=== PATIENT | female | born 1950 | race Caucasian/White ===

== ENCOUNTER 2020-06-18 08:22 | Day surgery (SDC) | payer MEDICARE, SELFPAY ==
--- NOTE | 2020-06-15 14:57 | HO.ANESPROP2 ---
HPI - Anesthesia Eval Consult details Narrative: 70 yo female patient here for colonoscopy PMFSH Past Medical History Medical History Cough Fibromyalgia Hyperlipidemia Hypertension Smoker Family History Family history of problems with anesthesia: Yes (Daughter aspirated during colonoscopy-admitted to hospital with pneumonia for 5 days so patient worried about her colonoscopy today.) Surgical History Surgical History (Updated 06/18/20 @ 10:13 by Jessica Tamez) H/O colonoscopy S/P LUCY (total abdominal hysterectomy) History of Problems with Anesthesia: No Social History Social History Smoking Status: Current every day smoker Packs Per Day: 0.5 Cigarettes Per Day: 10.0 Years Smoked: 17 Smoked in Last 30 Days: Yes Patient Interested in Nicotine Replacement: No Use of substances other than those prescribed or required for medical reasons: No Advance Directives: No Advance Directives Information Provided: Yes Meds Allergies Allergy/AdvReac Type Severity Reaction Status Date / Time acetaminophen [From PERCOCET] Allergy Unknown CLOSTROPHOBIC Verified 06/18/20 09:44 REACTION oxycodone [From PERCOCET] Allergy Unknown CLOSTROPHOBIC Verified 06/18/20 09:44 REACTION Exam Height,Weight and Vital Signs: Vital Signs Temp Pulse Resp BP Pulse Ox 06/18/20 09:31 98.2 F 90 20 119/66 94 Airway Mallampati Class: III TM Dist: >3cm Neck ROM: Full Heart: RRR Lungs: Diminished but clear Assessment and Plan Assessment Anesthesia Assessment: Anesthesia Plan Discussed and Chart Reviewed Final Anesthetic Review NPO: Yes ASA Class: II Final Preanesthetic Review: No Changes in Pt Med Stat, Meds/Allgs Chart Reviewed, Consent Obtained/Reviewed and Anes Risks/Benef Reviewed Patient Risk: Intermediate Procedure Risk: Low Assessment/Block/Sedation in SS: Assess/Block/Sedation-SS Anesthetic Plan Anesthetic Plan: MAC: Disposition: Standard PACU
[2020-06-18 09:29] VITALS: BMI 28.7
[2020-06-18 09:31] VITALS: BP 119/66; PULSE 90; RESP 20; TEMP 36.8; O2SAT 94
[2020-06-18 09:33] VITALS: BMI 28.5
[2020-06-18 09:47] VITALS: BMI 28.7
--- NOTE | 2020-06-18 10:50 | PM.OP ---
Brief Operative Note Date of Service: 06/18/20 Pre-op diagnosis: Screening Post-op diagnosis: other (Colon polyps, Diverticulosis) Procedure: Colonoscopy to the cecum and TI with biopsies and removal of polyps Surgeon: Kemar Hernández Anesthesia: MAC Estimated blood loss (mL): 4.0 Pathology: other (A. Cecal polyp B. Polyps at 50cm C. Rectal polyps) Condition: stable Disposition: PACU
[2020-06-18 10:51] VITALS: BP 128/80; PULSE 122; RESP 18; TEMP 36.2; O2SAT 98
[2020-06-18 11:07] VITALS: BP 123/63; PULSE 99; RESP 18; TEMP 36.2; O2SAT 95
--- NOTE | 2020-06-18 11:24 | OP_ITS ---
SURGEON: Kemar Hernández MD INDICATIONS: The patient presents for evaluation of colorectal cancer screening and prior history of tubular adenoma of the colon. Full consent has been obtained from her for this, including risks of bleeding and perforation. PREOPERATIVE DIAGNOSIS: POSTOPERATIVE DIAGNOSIS: PROCEDURE PERFORMED: Colonoscopy to cecum and terminal ileum with biopsy and removal of polyps. ESTIMATED BLOOD LOSS: COMPLICATIONS: ANESTHESIA: Monitored anesthesia care. ASSISTANTS: SPECIMENS: PREOPERATIVE DIAGNOSES: Colorectal cancer screening and personal history of tubular adenoma of the colon. POSTOPERATIVE DIAGNOSES: Colorectal cancer screening and personal history of tubular adenoma of the colon, colon polyps, diverticulosis, and internal and external hemorrhoids. DESCRIPTION OF PROCEDURE: The patient was placed in the left lateral decubitus position. The digital rectal exam revealed no abnormalities. The Olympus video pediatric colonoscope was entered into the rectum and advanced to the cecum. Advancement was somewhat difficult due to some intestinal spasm. However, once in the cecum, I did identify cecal pouch with appendiceal orifice and a normal-appearing ileocecal valve. The terminal ileum was cannulated and appeared normal. The scope was withdrawn back in the colon. The entire cecum was well visualized and appeared normal other than a 3 or 4 mm polyp, which was biopsied and completely removed with cold biopsy forceps. The scope was slowly withdrawn assessing all mucosal surfaces carefully. Preparation was excellent. At 50 cm and in the rectum, were several flat less than 5 mm polyps, which were all biopsied and removed with cold biopsy forceps. I did not visualize any other polyps, colitis, nor angiodysplasia. There was a moderate amount of sigmoid diverticulosis. In the rectum, scope was retroflexed visualizing prominent internal hemorrhoids, but no other pathology. The rectal mucosa appeared normal. The scope was straightened out and withdrawn from the patient. She tolerated the procedure well and was returned to the recovery area in stable condition. IMPRESSION: 1. Colon polyps, status post biopsy and removal. 2. Diverticulosis. 3. Internal and external hemorrhoids. PLAN: The results of the biopsy will be checked. I would recommend a repeat colonoscopy in 5 years for further screening. This has been discussed with her . MD GIGI Funes/TRISHAL / [id number]
== END 2020-06-18 11:32 | disposition home or self-care (01) ==
PROVIDERS: PCP Internal Medicine; Visit Provider Internal Medicine
PROC: 0DJD8ZZ Inspection of Lower Intestinal Tract, Via Natural or Artificial Opening Endoscopic (ICD-10-PCS; CPT 45378; principal; 2020-06-18 09:30)
DX: Z12.11 Encounter for screening for malignant neoplasm of colon (principal); D12.0 Benign neoplasm of cecum; D12.6 Benign neoplasm of colon, unspecified; K62.1 Rectal polyp; K57.30 Diverticulosis of large intestine without perforation or abscess without bleeding; K64.4 Residual hemorrhoidal skin tags; K64.8 Other hemorrhoids; Z86.010 Personal history of colon polyps; I10 Essential (primary) hypertension; F17.210 Nicotine dependence, cigarettes, uncomplicated; Z88.6 Allergy status to analgesic agent
CPT/HCPCS: 45380; 88305; J2250